=== PATIENT | male | born 1985 | race Caucasian/White ===

== ENCOUNTER 2021-11-10 12:39 | Emergency (ER) | payer BC ==
[~2021-11-10] VITALS: Ht 182.9 cm; Wt 115.7 kg
[2021-11-10 13:23] LABS: HEMATOCRIT 42.1 % (36.7-47.1); MEAN CORPUSCULAR HEMOGLOBIN 28.9 uug (23.8-33.4); MEAN CORPUSCULAR VOLUME 82.7 fL (73.0-96.2); PLATELET COUNT (AUTO) 146 K/uL (152-348)
--- NOTE | 2021-11-10 14:27 | NUR ---
Gave pt d/c instructions, pt verbalized understanding.
== END 2021-11-10 14:32 | disposition home or self-care (01) ==
LOC: ER 12:39
DX: R07.9 Chest pain, unspecified (principal); R51.9 Headache, unspecified
CPT/HCPCS: 36415; 71045; 84484; 85025; 93005; A4663